=== PATIENT | male | born 1980 | race Caucasian/White ===

== ENCOUNTER 2017-05-01 17:31 | Emergency (ER) | payer MEDICAID ==
[2017-05-01 18:02] VITALS: BP 179/113
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
== END 2017-05-01 18:58 | disposition home or self-care (01) ==
LOC: ED 17:31
DX: S01.01XD Laceration without foreign body of scalp, subsequent encounter (principal); W22.8XXD Striking against or struck by other objects, subsequent encounter
CPT/HCPCS: 99283